=== PATIENT | female | born 2000 | race Caucasian/White ===

== ENCOUNTER 2019-08-29 16:45 | Emergency (ER) | payer OTHER ==
[~2019-08-29] VITALS: Ht 162.6 cm; Wt 55.1 kg
[~2019-08-29 16:45] MED LIST: HUMALOG100 U/ML SC; LANTUS100 U/ML; ZYRTEC 10MG10 MG PO
[2019-08-29 17:09] VITALS: BP 126/74; TEMP 99
[2019-08-29] MEDS ORDERED: LEVEMIR100 U/ML SQ ×2 (17:13→17:16)
[2019-08-29] MEDS ORDERED: NOVOLOG 100U100 U/M1 SQ (17:14)
[2019-08-29] MEDS ORDERED: VYVANSE20 MG PO (17:15)
[2019-08-29] MEDS ORDERED: LAMICTAL150 MG PO (17:17)
[2019-08-29] MEDS ORDERED: LAMICTAL XR100 MG PO (17:17)
[2019-08-29 18:22] LABS: BASO % 0.3 % (0.0-2.0); GRAN # 7.8 (1.4-6.5); GRAN % 85.7 % (42.2-75.2); HEMOGLOBIN 13.2 g/dl (12.0-15.0); LYMPH # 0.9 (1.2-3.4); MEAN CELL VOLUME 91 fl (80.0-95.0); MEAN CORPUSCULAR HEMOGLOBIN 30 pg (26.0-32.0); MEAN CORPUSCULAR HGB CONC 33 g/dl (33.0-37.0); MEAN PLATELET VOLUME 8.6 fl (7.4-10.4); MONO # 0.3 (0.1-0.6); MONO % 3.7 % (1.7-9.3); PLATELET COUNT 400 K/mm3 (130-400); RED BLOOD COUNT 4.41 M/mm3 (4.10-5.30); REDCELL DISTRIBUTION WIDTH-CV 12.4 % (11.5-14.5)
[2019-08-29 19:06] LABS: ALANINE AMINOTRANSFERASE 15 U/L (9-52); ALBUMIN 4.7 gm/dL (3.5-5.0); ALKALINE PHOSPHATASE 82 U/L (50-136); ANION GAP 13 mmol/L (7-16); AST,SGOT 26 U/L (15-37); BILIRUBIN,TOTAL 0.4 mg/dL (0.0-1.0); BLOOD UREA NITROGEN 14 mg/dL (7-17); CALCIUM 9.8 mg/dL (8.4-10.2); CARBON DIOXIDE 24 mmol/L (22-30); CHLORIDE 101 mmol/L (98-107); CREATININE, serum 0.49 (0.52-1.25); GLUCOSE 166 mg/dL (74-106); LIPASE 37 U/L (23-300); POTASSIUM 4.2 mmol/L (3.4-5.0); SODIUM 139 mmol/L (137-145)
[2019-08-29 19:07] LABS: C-REACTIVE PROTEIN < 0.5 mg/dL (0.0-0.9)
[2019-08-29] MEDS ORDERED: ZOFRAN ODT4 MG PO ×2 (19:49→20:57)
[2019-08-29 21:04] LABS: COLLECTION METHOD CLEAN CATCH
[2019-08-29 21:15] LABS: MUCOUS Present /lpf; PH 6 (5-8); URINE APPEARANCE Clear; URINE BACTERIA None Seen /hpf; URINE BILIRUBIN Negative (NEGATIVE); URINE BLOOD Negative (NEGATIVE); URINE COLOR Yellow; URINE GLUCOSE Negative (NEGATIVE); URINE KETONE Trace (NEGATIVE); URINE LEUKOCYTE ESTERASE Negative (NEGATIVE); URINE NITRATE Negative (NEGATIVE); URINE PROTEIN(semi-quant) Negative (NEGATIVE); URINE RBC 0-2 /hpf; URINE UROBILINOGEN Negative (NEGATIVE)
[2019-08-29 21:27] VITALS: PULSE 87
== END 2019-08-29 21:27 | disposition home or self-care (01) ==
LOC: COL.ER 16:45
PROVIDERS: Physician Assistant
DX: R11.10 Vomiting, unspecified (principal); E10.9 Type 1 diabetes mellitus without complications
CPT/HCPCS: J2405; J7030

== ENCOUNTER 2019-09-29 21:07 | Emergency (ER) | payer OTHER ==
[~2019-09-29] VITALS: Ht 162.6 cm; Wt 53.6 kg
[~2019-09-29 21:07] MED LIST changes: +LAMICTAL XR100 MG PO; +LAMICTAL150 MG PO; +LEVEMIR100 U/ML SQ; +NOVOLOG 100U100 U/M1 SQ; +VYVANSE20 MG PO; +ZOFRAN ODT4 MG PO
[2019-09-29 21:49] LABS: BASO # 0.1 (0.0-0.2); BASO % 0.3 % (0.0-2.0); EOS % 0.3 % (0-4.0); GRAN # 11.2 (1.4-6.5); GRAN % 77.1 % (42.2-75.2); HEMATOCRIT 40.6 % (35.0-45.0); HEMOGLOBIN 13.4 g/dl (12.0-15.0); LYMPH # 2.1 (1.2-3.4); LYMPH % 14.8 % (20.0-51.0); MEAN CELL VOLUME 89 fl (80.0-95.0); MEAN CORPUSCULAR HEMOGLOBIN 29 pg (26.0-32.0); MEAN CORPUSCULAR HGB CONC 33 g/dl (33.0-37.0); MEAN PLATELET VOLUME 9.2 fl (7.4-10.4); MONO % 7.2 % (1.7-9.3); PLATELET COUNT 365 K/mm3 (130-400); RED BLOOD COUNT 4.56 M/mm3 (4.10-5.30); REDCELL DISTRIBUTION WIDTH-CV 12.1 % (11.5-14.5)
[2019-09-29 22:05] LABS: MONOSCREEN NEGATIVE
[2019-09-29 22:11] LABS: ALANINE AMINOTRANSFERASE 8 U/L (9-52); ALBUMIN 4.8 gm/dL (3.5-5.0); ALKALINE PHOSPHATASE 118 U/L (50-136); ANION GAP 18 mmol/L (7-16); AST,SGOT 28 U/L (15-37); BILIRUBIN,TOTAL 0.4 mg/dL (0.0-1.0); BLOOD UREA NITROGEN 13 mg/dL (7-17); C-REACTIVE PROTEIN 5.5 mg/dL (0.0-0.9); CARBON DIOXIDE 20 mmol/L (22-30); CHLORIDE 100 mmol/L (98-107); CREATININE, serum 0.49 (0.52-1.25); GLUCOSE 188 mg/dL (74-106); POTASSIUM 3.6 mmol/L (3.4-5.0); SODIUM 138 mmol/L (137-145); TOTAL PROTEIN 8.7 gm/dL (6.4-8.2)
[2019-09-29 22:13] LABS: ACETONE,SERUM NEGATIVE
[2019-09-29 22:15] LABS: STREP SCREEN NEGATIVE
[2019-09-29 23:00] VITALS: BP 112/68; PULSE 82; TEMP 98.8
[2019-09-29] MEDS ORDERED: ZOFRAN 4MG T4 MG/TAB PO (23:12)
[2019-09-29] MEDS ORDERED: CLEOCIN HC150 MG/CAP PO (23:12)
== END 2019-09-29 23:35 | disposition home or self-care (01) ==
LOC: COL.ER 21:07
PROVIDERS: Emergency Medicine
DX: E10.9 Type 1 diabetes mellitus without complications (principal); J03.90 Acute tonsillitis, unspecified; F17.210 Nicotine dependence, cigarettes, uncomplicated
CPT/HCPCS: J1100; J2405; J7030; Q9967

== ENCOUNTER 2019-10-02 02:36 | Emergency (ER) | payer OTHER ==
[~2019-10-02] VITALS: Ht 152.4 cm; Wt 54.1 kg
[~2019-10-02 02:36] MED LIST changes: +CLEOCIN HC150 MG/CAP PO; +ZOFRAN 4MG T4 MG/TAB PO
[2019-10-02 02:39] VITALS: TEMP 97.7
[2019-10-02 03:18] LABS: BASO % 0.3 % (0.0-2.0); EOS % 0.2 % (0-4.0); GRAN # 9.2 (1.4-6.5); GRAN % 80.1 % (42.2-75.2); HEMATOCRIT 37.5 % (35.0-45.0); HEMOGLOBIN 12.3 g/dl (12.0-15.0); LYMPH # 1.5 (1.2-3.4); LYMPH % 12.9 % (20.0-51.0); MEAN CELL VOLUME 90 fl (80.0-95.0); MEAN CORPUSCULAR HEMOGLOBIN 29 pg (26.0-32.0); MEAN CORPUSCULAR HGB CONC 33 g/dl (33.0-37.0); MONO # 0.7 (0.1-0.6); MONO % 6.2 % (1.7-9.3); PLATELET COUNT 366 K/mm3 (130-400); RED BLOOD COUNT 4.19 M/mm3 (4.10-5.30); REDCELL DISTRIBUTION WIDTH-CV 12.4 % (11.5-14.5)
[2019-10-02 03:28] LABS: CALCIUM 9.4 mg/dL (8.4-10.2); CREATININE, serum 0.47 (0.52-1.25); POTASSIUM 3.5 mmol/L (3.4-5.0)
[2019-10-02 05:22] VITALS: BP 125/85; PULSE 85
== END 2019-10-02 05:22 | disposition home or self-care (01) ==
LOC: COL.ER 02:36
PROVIDERS: Emergency Medicine
DX: J03.90 Acute tonsillitis, unspecified (principal); E10.9 Type 1 diabetes mellitus without complications
CPT/HCPCS: J0295; J1885; J3010; J7030

== ENCOUNTER 2021-03-02 09:02 | Emergency (ER) | payer OTHER ==
[~2021-03-02] VITALS: Ht 162.6 cm; Wt 59.1 kg
[2021-03-02 09:08] VITALS: TEMP 97.9
[2021-03-02] MEDS ORDERED: CEPHALEXIN500 M1 PO (09:43)
[2021-03-02 09:55] VITALS: BP 130/84; PULSE 98
== END 2021-03-02 09:55 | disposition home or self-care (01) ==
LOC: COL.ER 09:02
DX: S61.214A Laceration without foreign body of right ring finger without damage to nail, initial encounter (principal); E11.9 Type 2 diabetes mellitus without complications; F17.290 Nicotine dependence, other tobacco product, uncomplicated; F17.210 Nicotine dependence, cigarettes, uncomplicated; Z79.4 Long term (current) use of insulin; W26.9XXA Contact with unspecified sharp object(s), initial encounter; Y99.0 Civilian activity done for income or pay; Y92.524 Gas station as the place of occurrence of the external cause

== ENCOUNTER → 2021-03-09 | Outpatient (CLI) | payer SELFPAY ==
[~2021-03-09] MED LIST changes: +CEPHALEXIN500 M1 PO; +OMNICEF 300MG300 MG PO
[2021-03-09 13:24] VITALS: BP 121/81; PULSE 112; TEMP 98.4
== END ==
LOC: COL.ER 13:07
DX: Z48.02 Encounter for removal of sutures (principal)

== ENCOUNTER 2021-05-21 11:49 | Emergency (ER) | payer OTHER ==
[~2021-05-21] VITALS: Ht 162.6 cm; Wt 59.1 kg
[~2021-05-21 11:49] MED LIST changes: -OMNICEF 300MG300 MG PO
[2021-05-21 12:29] LABS: COLLECTION METHOD CLEAN CATCH
[2021-05-21 12:34] LABS: BASO % 0.4 % (0.0-2.0); EOS # 0.1 (0.0-0.7); EOS % 1.3 % (0-4.0); GRAN # 7.1 (1.4-6.5); HEMATOCRIT 39.9 % (37.0-47.0); HEMOGLOBIN 13.1 g/dl (12.5-16.0); LYMPH # 1.7 (1.2-3.4); LYMPH % 17.7 % (20.0-51.0); MEAN CELL VOLUME 90 fl (80.0-100.0); MEAN CORPUSCULAR HEMOGLOBIN 30 pg (27.0-31.0); MEAN CORPUSCULAR HGB CONC 33 g/dl (33.0-37.0); MEAN PLATELET VOLUME 9.1 fl (7.4-10.4); MONO # 0.6 (0.1-0.6); MONO % 6.4 % (1.7-9.3); PLATELET COUNT 371 K/mm3 (130-400); RED BLOOD COUNT 4.43 M/mm3 (4.10-5.30); REDCELL DISTRIBUTION WIDTH-CV 12.1 % (11.5-14.5)
[2021-05-21 12:41] LABS: PH 6 (5-8); SQUAMOUS EPITHELIAL 0-2 /hpf; URINE APPEARANCE Cloudy; URINE BACTERIA Moderate /hpf; URINE BILIRUBIN Negative (NEGATIVE); URINE BLOOD 3+ (NEGATIVE); URINE COLOR Yellow; URINE GLUCOSE 3+ (NEGATIVE); URINE KETONE 1+ (NEGATIVE); URINE LEUKOCYTE ESTERASE 3+ (NEGATIVE); URINE NITRATE Positive (NEGATIVE); URINE PROTEIN(semi-quant) 1+ (NEGATIVE); URINE RBC >50 /hpf; URINE UROBILINOGEN Negative (NEGATIVE)
[2021-05-21 12:45] LABS: ALBUMIN 4.2 gm/dL (3.5-5.0); BILIRUBIN,TOTAL 0.6 mg/dL (0.0-1.0); C-REACTIVE PROTEIN 0.9 mg/dL (0.0-0.9); CALCIUM 9.2 mg/dL (8.4-10.2); CREATININE, serum 0.6 (0.52-1.25); POTASSIUM 4.1 mmol/L (3.4-5.0); TOTAL PROTEIN 7.1 gm/dL (6.4-8.2)
[2021-05-21 14:05] VITALS: BP 113/73; PULSE 90; TEMP 98.3
[2021-05-21] MEDS ORDERED: OMNICEF 300MG300 MG PO (14:05)
== END 2021-05-21 14:31 | disposition home or self-care (01) ==
LOC: COL.ER 11:49
PROVIDERS: Personal Emergency Response Attendant; Physician Assistant
DX: N39.0 Urinary tract infection, site not specified (principal); E11.65 Type 2 diabetes mellitus with hyperglycemia; F17.210 Nicotine dependence, cigarettes, uncomplicated; Z79.4 Long term (current) use of insulin
CPT/HCPCS: J0696; J1200; J2765; J7030

== ENCOUNTER 2021-12-12 05:08 | Inpatient (IN) | payer OTHER ==
[~2021-12-12] VITALS: Ht 162.6 cm; Wt 55.8 kg
[2021-12-12] VITALS (248 sets, daily range): BP systolic 106–113; BP diastolic 59–71; PULSE 86–96; TEMP 98.2–98.7; O2SAT 96–100
[~2021-12-12 05:08] MED LIST changes: +LAMICTAL 100MG100 MG PO; -LAMICTAL XR100 MG PO; +OMNICEF 300MG300 MG PO
[2021-12-12 05:35] LABS: BASO # 0.1 K/mm3 (0.0-0.2); BASO % 0.6 % (0.0-2.0); EOS % 0.1 % (0.0-4.0); GRAN # 6.9 K/mm3 (1.4-6.5); GRAN % 67.9 % (42.2-75.2); HEMATOCRIT 38.1 % (37.0-47.0); HEMOGLOBIN 13.1 g/dl (12.5-16.0); LYMPH # 2.5 K/mm3 (1.2-3.4); LYMPH % 24.3 % (20.0-51.0); MEAN CELL VOLUME 84 fl (80.0-100.0); MEAN CORPUSCULAR HEMOGLOBIN 29 pg (27-31); MEAN CORPUSCULAR HGB CONC 34 g/dl (33.0-37.0); MEAN PLATELET VOLUME 9.2 fl (7.4-10.4); MONO # 0.7 K/mm3 (0.1-0.6); MONO % 6.9 % (1.7-9.3); PLATELET COUNT 318 K/mm3 (130-400); RED BLOOD COUNT 4.55 M/mm3 (4.10-5.30); REDCELL DISTRIBUTION WIDTH-CV 12.1 % (11.5-14.5)
[2021-12-12 05:46] LABS: ACETONE,SERUM SMALL
[2021-12-12 05:48] LABS: COLLECTION METHOD CLEAN CATCH
[2021-12-12 05:50] LABS: ALANINE AMINOTRANSFERASE 17 U/L (0-55); ALBUMIN 4.9 gm/dL (3.5-5.0); ALKALINE PHOSPHATASE 52 U/L (40-150); ANION GAP 24 mmol/L (7-16); AST,SGOT 16 U/L (5-34); BILIRUBIN,TOTAL 0.8 mg/dL (0.2-1.2); BLOOD UREA NITROGEN 16 mg/dL (7-19); CALCIUM 10.2 mg/dL (8.4-10.2); CHLORIDE 97 mmol/L (98-107); CREATININE, serum 1.23 mg/dL (0.57-1.11); POTASSIUM 3.6 mmol/L (3.5-4.5); SODIUM 134 mmol/L (136-145); TOTAL PROTEIN 8.2 gm/dL (6.2-8.1)
[2021-12-12 05:54] LABS: MUCOUS Present (NOT PRESENT); PH 5 (5-8); SQUAMOUS EPITHELIAL 0-2 /hpf (0-10); URINE APPEARANCE Clear (CLEAR/HAZY); URINE BACTERIA Rare /hpf (NONE SEEN); URINE BILIRUBIN Negative (NEGATIVE); URINE BLOOD 2+ (NEGATIVE); URINE COLOR Straw (YELLOW); URINE GLUCOSE 3+ (NEGATIVE); URINE KETONE 2+ (NEGATIVE); URINE LEUKOCYTE ESTERASE Negative (NEGATIVE); URINE NITRATE Negative (NEGATIVE); URINE PROTEIN(semi-quant) Negative (NEGATIVE); URINE RBC 0-2 /hpf (0-2); URINE UROBILINOGEN Negative (NEGATIVE)
[2021-12-12 05:55] LABS: CARBON DIOXIDE 13 mmol/L (22-29); GLUCOSE 418 mg/dL (70-99)
[2021-12-12 09:08] LABS: CREATININE, serum 0.78 mg/dL (0.57-1.11); POTASSIUM 3.6 mmol/L (3.5-4.5)
--- NOTE | 2021-12-12 10:24 | NUR ---
Initial visit; Patient thanked Pressroom Supervisor for looking in on her and offering God's blessings.
--- NOTE | 2021-12-12 12:39 | NUR ---
gas worker met with patient to complete intake. Patient currently lives at home alone in [facility]. She is independent with her ADL's and does not utilize any DME to assist to mobility. Patient has no oxygen needs at home. States her PCP is Ellyn Marroquin and that she gets her medications through [facility] (W). Patient is not and has no children. Patients established NOK is her mother Chanel Sanches ([phone]). States that her biological father is not in her life.
--- NOTE | 2021-12-12 16:00 | NUR ---
Patient did well today; blood glucose levels dropped this morning and insulin drip was stopped at approx 1000. Patient is now QIDF checks on a high-sliding scale with levemir.
[2021-12-12] MEDS ORDERED: MULTIVITAMIN200 MCG PO (17:28)
--- NOTE | 2021-12-12 17:54 | NUR ---
Patient admitted to room 319 from ICU. Report recieved from LOYDA Kraft. Medications, allergies, and pharmacy reviewed. Shift assessent performed. Everything WNL. Patient denies any pain, discomfort, SOA, or further needs at thist time. VSS. Patient A&O. Call light in reach.
--- NOTE | 2021-12-12 21:30 | NUR ---
Patient is resting in bed, alert and oriented x 4 VSS, denies pain, nausea or vomiting. Assessment completed, medications provided. No other needs at this time. Call light within reach.
--- NOTE | 2021-12-13 02:30 | NUR ---
Patient reported feeling sweaty. BG taken was 42. Hypoglycemic protocol applied. Pt stable.
[2021-12-13 02:52] VITALS: BP 110/61; PULSE 83; TEMP 98.6
--- NOTE | 2021-12-13 05:58 | NUR ---
Pt BG is 63. peanut butter and crakers provided. Continue monitoring.
[2021-12-13 06:36] LABS: BASO % 0.6 % (0.0-2.0); EOS # 0.1 K/mm3 (0.0-0.7); EOS % 1.7 % (0.0-4.0); GRAN # 3.6 K/mm3 (1.4-6.5); GRAN % 51.7 % (42.2-75.2); HEMATOCRIT 37.6 % (37.0-47.0); LYMPH # 2.5 K/mm3 (1.2-3.4); LYMPH % 36.3 % (20.0-51.0); MEAN CELL VOLUME 85 fl (80.0-100.0); MEAN CORPUSCULAR HEMOGLOBIN 29 pg (27-31); MEAN CORPUSCULAR HGB CONC 35 g/dl (33.0-37.0); MEAN PLATELET VOLUME 9.2 fl (7.4-10.4); MONO # 0.7 K/mm3 (0.1-0.6); MONO % 9.4 % (1.7-9.3); PLATELET COUNT 334 K/mm3 (130-400); RED BLOOD COUNT 4.44 M/mm3 (4.10-5.30); REDCELL DISTRIBUTION WIDTH-CV 12.4 % (11.5-14.5)
[2021-12-13 06:41] LABS: CREATININE, serum 0.78 mg/dL (0.57-1.11); POTASSIUM 3.7 mmol/L (3.5-4.5)
[2021-12-13 07:12] VITALS: BP 114/66; PULSE 89; TEMP 98
--- NOTE | 2021-12-13 09:21 | NUR ---
Scheduled medications given. Shift assessment performed. Patient A&O. VSS. States that she has a slight headache, but denies the need for intervention at this time. Patient denies any further pain, discomfort, SOA, or needs. Call light in reach.
--- NOTE | 2021-12-13 09:48 | NUR ---
Tromper followed up with patient to review discharge plan. Patient plans to return home at discharge and reports her primary care physician, Dr. Thomas is at the [facility] outside of [place].
[2021-12-13] MEDS ORDERED: NOVOLOG 100U100 U/M1 SQ (10:13)
--- NOTE | 2021-12-13 11:25 | NUR ---
Patient deemed for discharge home. IV's DC'd, catheters intact, no signs of phlebitis. Discharge education/instructions given. All question answered. Patient denies any pain, discomfort, SOA, or further needs at this time. VSS. BS stable. Patient A&O. Patient ambulated from the building escorted by [facility]. Boyfriend transporting home.
== END 2021-12-13 11:28 | disposition home or self-care (01) | DRG 639 ==
LOC: COL.ER 05:08 → ICU 06:03 → MEDICAL 17:40
PROVIDERS: Emergency Medicine; Physician Assistant; ADMIT Internal Medicine
DX: E10.10 Type 1 diabetes mellitus with ketoacidosis without coma (principal); F31.9 Bipolar disorder, unspecified; F17.210 Nicotine dependence, cigarettes, uncomplicated
CPT/HCPCS: 99222-AI; 99239; J1815; J2405; J3480; J7030